=== PATIENT | female | born 1945 | race Caucasian/White ===

== ENCOUNTER 2025-04-26 07:02 | Outpatient (CLI) | payer MEDICARE, SELFPAY ==
[2025-04-26] VITALS (12 sets, daily range): BP systolic 110–166; BP diastolic 57–77; PULSE 70–84; RESP 15–22; TEMP 36.5; O2SAT 93–100
--- NOTE | 2025-04-26 07:07 | DI.CT.S_ITS ---
PROCEDURE: CT BIOPSY BONE DEEP Sedation analgesia for 15 minutes. INDICATIONS: Multiple myeloma not having achieved remission TECHNIQUE: The indications, alternatives, benefits, risks, and possible complications of the procedure were communicated to the patient. Informed written consent from the patient was obtained and placed in the chart. Continuous EKG and hemodynamic monitoring was started by trained personnel. The patient was brought to the CT suite and coder spiral CT imaging was performed with localization grid. The appropriate site for percutaneous access to the biopsy target was marked, was prepped and draped sterilely, and was infused with local anaesthesia. Under CT guidance, a core biopsy trocar and needle set was advanced to the target, and specimen(s) were obtained. The trocar and needle were then removed, and the patient was sent for post-procedure monitoring. COMPARISON: Outside Facility, CT, CT ABDOMEN PELVIS W CON, 01/09/2025, 22:01. FINDINGS: Biopsy site: Left superior posterior iliac spine. Needle: 11 gauge biopsy needle with introducer trocar. Number of passes: 1 Medications: 1% lidocaine for local anaesthesia. IV Fentanyl and Versed for conscious sedation for 15 minutes (see nursing record). Complications: None. No postoperative he hematoma on CT. Bones appear somewhat osteopenic. Small ventral abdominal wall hernia. IMPRESSION: Successful CT-guided biopsy bone marrow aspiration and core biopsy. Patient may benefit from DEXA scan. Dictated by: Zeke Sifuentes M.D. on 04/26/2025 at 10:12 Approved by: Zeke Sifuentes M.D. on 04/26/2025 at 10:16
[2025-04-26 08:00] LABS: Hematocrit 28.8 % (36-46); Hemoglobin 9.7 g/dL (12.0-16.0); Mean Corpuscular HGB Conc 33.6 % (30-36); Mean Corpuscular Hemoglobin 30.4 PG (26-34); Mean Corpuscular Volume 90.4 fL (80-100); Platelet Count 418 X10^3/uL (150-400)
[2025-04-26 08:02] LABS: INR 1.1 (0.9-1.3); Prothrombin Time 12.0 SECONDS (9.4-12.5)
[2025-04-26 08:04] LABS: PTT Partial Thromboplastin Tim 27 SECONDS (25.1-36.5)
[2025-04-26] MEDS: fentaNYL 100 MCG/2 ML INJ 25 MCG IV ×2 (08:54→08:56)
[2025-04-26] MEDS: MIDAZOLAM 2 MG/2 ML VIAL 0.5 MG IV ×2 (08:54→08:56)
== END 2025-04-26 10:10 | disposition home or self-care (01) ==
LOC: CT 07:04
PROVIDERS: Radiology Diagnostic Radiology; PCP Physician Assistant Medical; Referring Provider Physician Assistant Medical; Visit Provider Physician Assistant Medical
DX: C90.00 Multiple myeloma not having achieved remission (principal); D64.9 Anemia, unspecified; K43.9 Ventral hernia without obstruction or gangrene
CPT/HCPCS: 20225; 77012; 85027; 85610; 85730; J2250; J3010